=== PATIENT | female | born 1990 | race Caucasian/White ===

== ENCOUNTER 2021-11-09 05:27 | Inpatient (IN) | payer OTHER ==
[~2021-11-09] VITALS: Ht 154.9 cm; Wt 64.4 kg
[~2021-11-09 05:27] MED LIST: PRENATAL VITAM1 EAC8 PO
[2021-11-09 06:20] LABS: HEMOGLOBIN 12.8 gm/dl (12.3-15.3); RED BLOOD COUNT 4.04 M/UL (4.00-5.10)
[2021-11-09] MEDS ORDERED: IBUPROFEN600 MG PO (16:38)
[2021-11-09] MEDS ORDERED: COLACE 100MG C100 MG PO (16:38)
[2021-11-09] MEDS ORDERED: FERROUS SULFAT325 MG PO (16:38)
[2021-11-10 04:35] LABS: HEMOGLOBIN 12.7 gm/dl (12.3-15.3)
== END 2021-11-10 18:23 | disposition home or self-care (01) | DRG 807 ==
LOC: OB 05:27
PROVIDERS: Obstetrics & Gynecology; ADMIT Obstetrics & Gynecology
PROC: 10E0XZZ Delivery of Products of Conception, External Approach (ICD-10-PCS; principal; 2021-11-09)
PROC: 10907ZC Drainage of Amniotic Fluid, Therapeutic from Products of Conception, Via Natural or Artificial Opening (ICD-10-PCS; 2021-11-09)
PROC: 4A1H7CZ Monitoring of Products of Conception, Cardiac Rate, Via Natural or Artificial Opening (ICD-10-PCS; 2021-11-09)
PROC: 10H073Z Insertion of Monitoring Electrode into Products of Conception, Via Natural or Artificial Opening (ICD-10-PCS; 2021-11-09)
PROC: 3E033VJ Introduction of Other Hormone into Peripheral Vein, Percutaneous Approach (ICD-10-PCS; 2021-11-09)
PROC: 3E0DXGC Introduction of Other Therapeutic Substance into Mouth and Pharynx, External Approach (ICD-10-PCS; 2021-11-09)
DX: O99.02 Anemia complicating childbirth (principal); Z37.0 Single live birth; D64.9 Anemia, unspecified; Z20.822 Contact with and (suspected) exposure to COVID-19; Z88.8 Allergy status to other drugs, medicaments and biological substances; Z80.3 Family history of malignant neoplasm of breast; Z82.49 Family history of ischemic heart disease and other diseases of the circulatory system
CPT/HCPCS: 36415; 81001; 85014; 85018; 85025; J2210; J2405; J2590; J7120